=== PATIENT | female | born 1965 | race Caucasian/White ===

== ENCOUNTER 2018-01-18 09:34 | Emergency (ER) | payer MEDICARE, MEDICAID ==
[2018-01-18] MEDS ORDERED: levETIRAcetam In NaCl (Iso-Os) 1,000 MG in Premix Bag 1 BAG IVPB SCH (10:15)
[2018-01-18] MEDS ORDERED: Acetaminophen 500 MG TAB ONE (10:37)
== END 2018-01-18 11:11 | disposition home or self-care (01) ==
LOC: ERS 09:34
DX: G40.909 Epilepsy, unspecified, not intractable, without status epilepticus (principal); Z91.14 Patient's other noncompliance with medication regimen; I10 Essential (primary) hypertension; F41.9 Anxiety disorder, unspecified; F17.210 Nicotine dependence, cigarettes, uncomplicated; Z85.42 Personal history of malignant neoplasm of other parts of uterus; Z79.899 Other long term (current) drug therapy
CPT/HCPCS: 36415; 80177; 84146; 96365; J1953

== ENCOUNTER 2018-03-10 06:29 | Emergency (ER) | payer MEDICAID, MEDICARE ==
[2018-03-10] MEDS ORDERED: traMADol HCl 50 MG TAB ONE (06:42)
== END 2018-03-10 06:50 | disposition home or self-care (01) ==
LOC: ERS 06:29
DX: S80.862A Insect bite (nonvenomous), left lower leg, initial encounter (principal); Z71.6 Tobacco abuse counseling; G40.909 Epilepsy, unspecified, not intractable, without status epilepticus; I10 Essential (primary) hypertension; F17.210 Nicotine dependence, cigarettes, uncomplicated; F41.9 Anxiety disorder, unspecified; Z79.899 Other long term (current) drug therapy; W57.XXXA Bitten or stung by nonvenomous insect and other nonvenomous arthropods, initial encounter
CPT/HCPCS: 99406

== ENCOUNTER 2018-04-08 06:25 | Emergency (ER) | payer MEDICARE ==
[2018-04-08 06:57] LABS: #Basophils 0.1 thou/uL (0.0-0.2); #Eosinphils 0.3 thou/uL (0.0-0.7); #Lymphocytes 2.5 thou/uL (1.20-3.40); #Monocytes 0.7 thou/uL (0.11-0.59); #Neutrophils 5.3 thou/uL (1.40-6.50); %Basophils 0.9 % (0.0-1.0); %Eosinophils 3.2 % (0.0-10.0); %Lymphocytes 28.3 % (21.0-51.0); %Monocytes 8.3 % (0.0-10.0); %Neutrophils 59.3 % (42.0-75.0); Hemoglobin 15.5 g/dL (12.0-16.0); Mean Corpuscular HGB CONC 33.5 g/dL (32.0-36.0); Mean Corpuscular Hemoglobin 29.9 pg (27.0-31.0); Mean Corpuscular Volume 89.1 fL (78.0-98.0); Mean Platelet Volume 6.5 fL (7.4-10.4); Platelet Count 320 thou/uL (130-400); RBC Distribution Width 11.9 % (11.5-14.5); White Blood Cell (WBC) Count 8.9 thou/uL (4.8-10.8)
[2018-04-08 07:20] LABS: ALT (SGPT) 60 U/L (8-55); AST (SGOT) 40 U/L (5-34); Albumin 4.3 g/dL (3.5-5.0); Alkaline Phosphatase 114 U/L (40-150); Anion Gap 14 mmol/L (10-20); BUN (Urea Nitrogen) 12 mg/dL (9.8-20.1); Bilirubin, Total 0.3 mg/dL (0.2-1.2); Calc. Creatinine Clearance 0 mL/min (70-130); Carbon Dioxide 25 mmol/L (22-29); Chloride 105 mmol/L (98-107); Estimated GFR-MDRD 80; Globulin 3.1 g/dL (2.4-3.5); Glucose 107 mg/dL (70-105); Protein, Total 7.4 g/dL (6.0-8.3); Sodium 140 mmol/L (136-145)
[2018-04-08] MEDS ORDERED: Acetaminophen 500 MG TAB ONE (07:44)
--- NOTE | 2018-04-08 08:18 | CT ---
NONCONTRAST CT HEAD: DATE: 04/08/18. HISTORY: Trauma. The patient had a seizure on Saturday and hit right side of face. The patient has right eye p ain. The patient states passed out on concrete floor and does not remember the incident. COMPARISON: 05/24/15. FINDINGS: Again noted is evidence of prior craniotomy defect involving the left calvarium. There is also a sta ble area of encephalomalacia within the left temporal occipital region. There is no evidence of a he morrhage, acute infarction, mass effect, or midline shift. The ventricular system is normal in size, shape, and position. Mucosal thickening is seen in the ethmoidal air cells bilaterally. The mastoid air cells are clear. No calvarial fracture is seen. There are calcifications in the scalp soft tissues anteriorly at the vertex and posterior occipital region which may be related to calcified sebaceous cyst. These calcif ications were present on prior exam, although smaller in size. There is subcutaneous soft tissue swe lling seen adjacent to the right orbit as well as in the right lateral frontoparietal region. IMPRESSION: 1. No acute intracranial abnormalities demonstrated. 2. Cerebellar tonsils again appear low-lying as noted on prior exam. 3. Stable postsurgical changes of left calvarium with underlying encephalomalacia within the left te mporo-occipital region. 4. Sinus disease. 5. Subcutaneous soft tissue swelling adjacent to the right orbit as well as involving the right fron toparietal scalp soft tissues. POS: [facility]
--- NOTE | 2018-04-08 08:30 | CT ---
CT FACIAL BONES WITH SAGITTAL REFORMATIONS: HISTORY: Trauma, seizure, hit the right side of the face. Right eye pain. FINDINGS: The bony orbital kelsey are intact. No proptosis or retrobulbar hematoma is seen on either side. No facial bone fractures are identified. No temporomandibular dislocation is seen. There is mucosal di sease in the paranasal sinuses. There are postop changes in the left calvarium. There is soft tissu e swelling in the right periorbital region. IMPRESSION: No CT evidence of facial bone fracture. POS: [facility]
--- NOTE | 2018-04-08 09:05 | RAD ---
RIGHT SHOULDER 3 VIEWS: HISTORY: Right shoulder pain. FINDINGS/IMPRESSION: No acute fracture or dislocation is seen. There are mild degenerative changes in the acromioclavicul ar joint. POS: [facility]
--- NOTE | 2018-04-08 09:11 | RAD ---
PORTABLE LEFT KNEE 4 VIEWS: HISTORY: Injury. Left knee pain. FINDINGS/IMPRESSION: No acute fracture or dislocation is identified. There is irregular patchy calcification in the dista l shaft of the femur which may be either due to an enchondroma or a bone infarct. This is unchanged since the exam of 02/12/16. POS: [facility]
== END 2018-04-08 08:11 | disposition home or self-care (01) ==
LOC: ERS 06:25
DX: S00.11XA Contusion of right eyelid and periocular area, initial encounter (principal); S40.011A Contusion of right shoulder, initial encounter; G40.909 Epilepsy, unspecified, not intractable, without status epilepticus; I10 Essential (primary) hypertension; F41.9 Anxiety disorder, unspecified; F17.210 Nicotine dependence, cigarettes, uncomplicated; Z79.899 Other long term (current) drug therapy; W22.8XXA Striking against or struck by other objects, initial encounter
CPT/HCPCS: 36415; 70450; 70486; 80053; 80177; 85025; 99406

== ENCOUNTER 2018-10-14 18:29 | Observation (INO) | payer MEDICARE ==
[2018-10-14 19:14] LABS: #Basophils 0.1 thou/uL (0.0-0.2); #Eosinphils 0.2 thou/uL (0.0-0.7); #Lymphocytes 3.6 thou/uL (1.20-3.40); #Monocytes 0.7 thou/uL (0.11-0.59); #Neutrophils 5.3 thou/uL (1.40-6.50); %Eosinophils 1.6 % (0.0-10.0); %Lymphocytes 36.7 % (21.0-51.0); %Monocytes 7.2 % (0.0-10.0); %Neutrophils 53.6 % (42.0-75.0); Hemoglobin 15.7 g/dL (12.0-16.0); Mean Corpuscular HGB CONC 33.3 g/dL (32.0-36.0); Mean Corpuscular Hemoglobin 30.5 pg (27.0-31.0); Mean Corpuscular Volume 91.6 fL (78.0-98.0); Mean Platelet Volume 6.7 fL (7.4-10.4); Platelet Count 360 thou/uL (130-400); Red Blood Cell (RBC) Count 5.13 mill/uL (4.20-5.40); White Blood Cell (WBC) Count 9.8 thou/uL (4.8-10.8)
[2018-10-14 19:36] LABS: ALT (SGPT) 71 U/L (8-55); AST (SGOT) 33 U/L (5-34); Albumin 4.4 g/dL (3.5-5.0); Alkaline Phosphatase 108 U/L (40-150); Anion Gap 13 mmol/L (10-20); BUN (Urea Nitrogen) 9 mg/dL (9.8-20.1); Bilirubin, Total 0.3 mg/dL (0.2-1.2); CK (CPK) 166 U/L (29-168); Calc. Creatinine Clearance 0 mL/min (70-130); Calcium 9.8 mg/dL (7.8-10.44); Carbon Dioxide 27 mmol/L (22-29); Chloride 104 mmol/L (98-107); Estimated GFR-MDRD 74; Globulin 3.4 g/dL (2.4-3.5); Glucose 92 mg/dL (70-105); Lipase 19 U/L (8-78); Potassium 3.9 mmol/L (3.5-5.1); Protein, Total 7.8 g/dL (6.0-8.3); Sodium 140 mmol/L (136-145)
--- NOTE | 2018-10-14 20:22 | RAD ---
PORTABLE CHEST: 10/14/18 PROVIDED CLINICAL HISTORY: Chest pain. FINDINGS: Comparison 11/19/16. The cardiac and mediastinal silhouette is within normal limits. Lungs appear clear. No pleural fluid or pneumothorax apparent. IMPRESSION: No evidence for acute cardiopulmonary process. POS: [facility]
[2018-10-14] MEDS ORDERED: Acetaminophen 500 MG TAB ONE (21:48)
--- NOTE | 2018-10-14 22:19 | CT ---
CT OF BRAIN 10/14/18 PROVIDED CLINICAL HISTORY: Left arm weakness. FINDINGS: Comparison is made with the study dated 04/08/18. The ventricular system is unchanged in size and morphology. There is no evidence for intracranial hem orrhage or mass effect. Left temporal region encephalomalacia with overlying postoperative change inv olving the skull redemonstrated, stable. The extracranial soft tissues and osseous structures demonst rate no acute abnormality. IMPRESSION: No evidence for intracranial hemorrhage or mass effect. POS: [facility]
[2018-10-14 23:41] LABS: Troponin I Less than 0.010 ng/mL (< 0.028)
[2018-10-15 02:34] LABS: Troponin I Less than 0.010 ng/mL (< 0.028)
[2018-10-15] MEDS ORDERED: Eucerin (Mineral Oil/Petrolatum,White) 30 gm Jar TOP PRN (07:59)
[2018-10-15] MEDS ORDERED: Zolpidem Tartrate 5 MG TAB PO PRN (07:59)
[2018-10-15] MEDS ORDERED: Diabetic Tussin 200 MG/10 ML UDCUP PO PRN (07:59)
[2018-10-15] MEDS ORDERED: Sodium Chloride 0.65% Nasal 44 ML BOT EA NARE PRN (07:59)
[2018-10-15] MEDS ORDERED: Senokot S 8.6-50 MG TAB PO PRN (07:59)
[2018-10-15] MEDS ORDERED: Calcium Carbonate 500 MG ChewTAB PO PRN (07:59)
[2018-10-15] MEDS ORDERED: Acetaminophen 325 MG TAB PO PRN (07:59)
[2018-10-15] MEDS ORDERED: hydrALAZINE 20 MG/ML VIAL SLOW IVP PRN (07:59)
[2018-10-15] MEDS ORDERED: Bisacodyl 10 MG SUPP PR PRN (07:59)
[2018-10-15] MEDS ORDERED: Ondansetron PF 4 MG/2 ML Vial IVP PRN (07:59)
[2018-10-15] MEDS ORDERED: Ondansetron ODT 4 MG TAB PO PRN (07:59)
[2018-10-15] MEDS ORDERED: Loperamide HCl 2 MG CAP PO PRN (07:59)
[2018-10-15] MEDS ORDERED: Loratadine 10 MG TAB PO PRN (07:59)
[2018-10-15] MEDS ORDERED: Bisacodyl 5 MG TAB PO PRN (07:59)
[2018-10-15] MEDS ORDERED: Cepastat Lozenges 1 LOZ PO PRN (07:59)
[2018-10-15] MEDS ORDERED: Artificial Tears 18 DROP/0.9 ML EA EYE PRN (07:59)
[2018-10-15] MEDS ORDERED: levETIRAcetam 500 MG TAB PO SCH (09:45)
--- NOTE | 2018-10-15 10:11 | ULT ---
CAROTID ULTRASOUND: Comparison: None. History: TIA. Technique: Multiplanar grayscale and color doppler images were obtained in a carotid ultrasound. Spec tral analysis of the doppler waveforms were performed. FINDINGS: The bilateral internal and common carotid arteries show no significant calcified plaque. The doppler waveforms are normal bilaterally. Peak systolic velocity in the right ICA is 89 cm/sec. Peak systolic velocity in the right CCA is 104 cm/sec. The right ICA/CCA ratio is 0.9. Peak systolic velocity in the left ICA is 93 cm/sec. Peak systolic velocity in the left CCA is 91 cm/ sec. The left ICA/CCA ratio is 1.0. Both vertebral arteries demonstrate antegrade flow without focal stenosis. IMPRESSION: No evidence of hemodynamically significant stenosis. POS: [facility]
--- NOTE | 2018-10-15 11:53 | HP ---
PRIMARY CARE PHYSICIAN: [facility]. REASON FOR ADMISSION: Left upper and lower extremity weakness. HISTORY OF PRESENT ILLNESS: A 53-year-old female, who has underlying history of hypertension, seizure disorder, as well as tobacco abuse disorder, who came to emergency room with complaint of left upper and lower extremity weakness. The patient reports that symptoms started over a week and she was having difficulty lifting left upper and lower extremity. She did not have any speech problems. She was reporting that she noticed lump in her left arm, which was bothering her. Per the patient that lump is present for several months and per the patient, it has not significantly increased in size. She was also having on and off headache yesterday. She was also feeling tingling and numbness in the left upper and lower extremity and that is why she decided to come to emergency room for evaluation. The patient denies any seizure. She denies any chest pain, palpitation, dizziness, syncope, fall, or trauma. She denies any UTI symptoms. She denies any constipation, diarrhea, melena, or hematochezia. In the emergency room, she had a CT of brain, which was normal. Her routine blood test including CBC, BMP, and cardiac enzyme are negative. The patient is being admitted to Stroke Floor for further evaluation. REVIEW OF SYSTEMS: CONSTITUTIONAL: Negative for weight loss or gain, ability to conduct usual activities. SKIN: Negative for rash, itching. EYES: Negative for double vision, pain. ENT/MOUTH: Negative for nose bleeding, neck stiffness, pain, tenderness. CARDIOVASCULAR: Negative for palpitations, dyspnea on exertion, orthopnea. RESPIRATORY: Negative for shortness of breath, wheezing, cough, hemoptysis, fever or night sweats. GASTROINTESTINAL: Negative for poor appetite, abdominal pain, heartburn, nausea , vomiting, constipation, or diarrhea. GENITOURINARY: Negative for urgency, frequency, dysuria, nocturia. MUSCULOSKELETAL: Negative for pain, swelling. NEUROLOGIC/PSYCHIATRIC: Negative for anxiety, depression. ALLERGY/IMMUNOLOGIC: Negative for skin rash, bleeding tendency. Please see my HPI for pertinent positive and negative. All other review of systems reviewed and negative except as mentioned in the HPI. PAST MEDICAL HISTORY: Hypertension, history of uterine malignancy, and history of epilepsy. PAST SURGICAL HISTORY: Brain tumor surgery, which turned out to be benign, appendicectomy, cholecystectomy, , and hysterectomy. PAST PSYCHIATRIC HISTORY: Anxiety and depression. SOCIAL HISTORY: The patient is . She drinks alcohol every week. She smokes about 1.5 pack per day. She denies any other illicit drug abuse. FAMILY HISTORY: No family history of coronary artery disease, stroke, or cancer. ALLERGIES: PREDNISONE AND VIOXX. CURRENT HOME MEDICATIONS: 1. Keppra 1000 mg twice daily. 2. Amlodipine 5 mg daily. The patient is taking some other medication, but she is not able to tell me the name of medication at this point, but based on our 2017 record, the patient is on; 1. Buspirone 15 mg b.i.d. 2. Clonazepam 0.5 mg at bedtime. 3. Clonidine 0.1 mg at bedtime. 5. Tramadol p.r.n. 6. Amlodipine 5 mg daily. EMERGENCY ROOM COURSE: Reviewed. The patient was given aspirin, nicotine patch , Keppra, and Tylenol. PHYSICAL EXAMINATION: VITAL SIGNS: Currently blood pressure 163/98, pulse 89, respiratory rate 18, temperature 97.8, and saturation 97% on room air. Weight 65.7 kg. GENERAL: The patient is currently alert, awake, in no obvious acute distress. HEENT: Head; normocephalic, atraumatic. Eyes; pupils are round, reactive to light. Extraocular muscle intact. ENT, oropharynx within normal limits. Moist mucous membranes. No oral lesion. No pharyngeal erythema. No exudate. NECK: Supple. No JVD. No thyromegaly. No carotid bruit. No jugular venous distention. LUNGS: Clear to auscultation without any rhonchi or rales. CARDIAC: S1 and S2 regular. No murmur. No gallop. No rub. ABDOMEN: Soft. Bowel sounds present. Nontender. Nondistended. No organomegaly. No mass. No suprapubic tenderness. BACK: Unremarkable. No CVA tenderness. EXTREMITIES: Upper extremities; passive movement of all joints are normal. Lower extremities, passive movement of all joints are normal. SKIN: No skin rash. PSYCHIATRIC: Normal affect. HEMATOLOGIC: No lymphadenopathy. NEUROLOGIC: The patient is alert and oriented x3. Cranial nerves nerve 2 through 12 intact. Face is symmetrical without any facial asymmetry. Speech normal. Motor, the patient does have difficulty lifting left upper and lower extremity. Reflex is symmetrical. Sensation is intact. Unable to elicit cerebellar signs with the left side because the patient is not able to lift the left upper and lower extremity. When I was examining her neuro, at that time, there was suspicion for her convergent type of behavior. SIGNIFICANT LABORATORY DATA: CT brain based on my review no acute intracranial process. CBC; WBC 9.8, hemoglobin 15.7, and platelets 360. BMP; sodium 140, potassium 3.9, chloride 104, carbon dioxide 27, anion gap 13, BUN 9, creatinine 0.81, glucose 92, and calcium 9.8. LFT; AST 33, ALT 71, alkaline phosphatase 108, albumin 4.4, lipase 19. Cardiac enzymes negative x3. EKG showing normal sinus rhythm, left atrial enlargement. Carotid Doppler turned out to be normal. Chest x-ray based on my review, no acute cardiopulmonary process. ASSESSMENT AND PLAN: Impression: 1. Left upper and lower extremity weakness. At this point, the patient has underlying history of hypertension and tobacco abuse disorder. She has some risk factor for having transient ischemic attack versus atherosclerotic disease. At this point, my suspicious is also points towards conversion disorder, but underlying stroke needs to be excluded. We will obtain an MRI of brain. We will consult Neurology for expert opinion. Meanwhile, we will continue with aspirin 81 mg daily, amlodipine 5 mg p.o. daily, Lipitor 40 mg p.o. at bedtime. Neuro check q.4 hourly. PT and OT consultation. Echocardiography and carotid Doppler. We will check urine drug screen. We will check lipid profile. 2. Epilepsy, currently stable. We will continue Keppra 1000 mg p.o. b.i.d. 3. Hypertension. We will continue amlodipine 5 mg p.o. daily. 4. Tobacco abuse disorder. Smoking cessation counseling given, healthy lifestyle measure discussed with the patient. We will continue with nicotine patch. 5. Anxiety and depression. Once we confirm the patient's home medication, we will resume selected antidepressant and anxiety medication while in hospital. 6. Deep venous thrombosis prophylaxis, Lovenox 40 mg subcu daily. GI prophylaxis, Pepcid 20 mg p.o. b.i.d. CODE STATUS: The patient is full code. The patient's is surrogate decision maker. Disposition plan within 24 hours. Plan of care discussed with the patient and her at bedside in the emergency room. Job ID: [id number] MTDD
[2018-10-15] MEDS ORDERED: Acetaminophen 500 MG TAB ONE ×2 (13:17→13:38)
[2018-10-15] MEDS ORDERED: Nicotine 14 MG PATCH ONE (13:39)
[2018-10-15] MEDS: Nicotine 14 MG PATCH TOP SCH (13:57)
[2018-10-15] MEDS ORDERED: Famotidine 20 MG TAB ONE (14:00)
[2018-10-15] MEDS ORDERED: Enoxaparin Sodium 40 MG/0.4 ML SYRINGE ONE (14:00)
[2018-10-15] MEDS: Famotidine 20 MG TAB PO SCH ×2 (14:06→20:32)
[2018-10-15] MEDS: Enoxaparin Sodium 40 MG/0.4 ML SYRINGE SC SCH (14:06)
--- NOTE | 2018-10-15 14:16 | MRI ---
BRAIN MRI WITHOUT CONTRAST: Date: 10/15/18 COMPARISON: None. HISTORY: Transient ischemic attack, left arm weakness. TECHNIQUE: Multiplanar, multisequence MR imaging of the brain obtained without contrast. FINDINGS: Status post craniotomy on the left. There is a focal area of encephalomalacia in the left temporal lo be laterally, stable when compared to prior imaging. The regional bone marrow signal intensity appears grossly unremarkable. Benign-appearing subcutaneous fat nodules are seen within the scalp. There is degenerative change at the atlantoaxial interspace. There is mild mucosal thickening involving the maxillary sinuses and the ethmoid air cells. Arterial flow-voids at axial level of skull base appear patent. Axial gradient echo imaging demonstrates no ev idence for intracranial hemorrhage. The diffusion-weighted imaging demonstrates no evidence for acute infarction. There are a few scattered foci of increased FLAIR signal within the subcortical white matter suggesti ng mild small vessel disease. Similar patchy increased T2 signal seen within the martin. IMPRESSION: Chronic findings as described above. No evidence for acute infarction. POS: [facility]
[2018-10-15 17:41] VITALS: BMI 23.1
[2018-10-15] MEDS: HYDROcodone/Acetaminophen 5/325 mg Tablet PO PRN (19:26)
[2018-10-15 20:30] LABS: Bilirubin Negative (Negative); Blood, Urine Small (Negative); Clarity CLEAR (Clear); Glucose, Urine (Dipstick) Negative (Negative); Leukocyte Moderate (Negative); Nitrite Negative (Negative); Protein, Urine (Dipstick) Negative (Neg-Trace); Specific Gravity, Urine 1.004 (1.002-1.036); Urobilinogen 0.2 mg/dL (0.2-1.0)
[2018-10-15 20:31] LABS: Bacteria/HPF None Seen HPF (None Seen); Hyaline Casts/LPF 0-3 HYALINE CAST LPF (0-3 Hyaline); Pathc Cast-AUWi Flag 0.14 (0-2.49); Squamous Epithelial 0-3 HPF (0-3)
[2018-10-15] MEDS: levETIRAcetam 500 MG TAB PO SCH (20:32)
[2018-10-15 20:38] LABS: Amphetamine Not Detected (NotDetected); Barbiturates Screen Not Detected (NotDetected); Benzodiazepine Screen Not Detected (NotDetected); Cocaine Metabolite Screen Not Detected (NotDetected); Medtox Control Line Valid? VALID (VALID); Medtox Reader # READER 1; Methadone Not Detected (NotDetected); Methamphetamine Not Detected (NotDetected); Opiate Screen Not Detected (NotDetected); Oxycodone Screen Not Detected (NotDetected); Phencyclidine (PCP) Not Detected (NotDetected); THC/Cannabinoid Screen Not Detected (NotDetected); Tricyclic Screen Not Detected (NotDetected)
[2018-10-15] MEDS ORDERED: Atorvastatin Calcium 40 MG TAB PO SCH (21:00)
[2018-10-16] MEDS: HYDROcodone/Acetaminophen 5/325 mg Tablet PO PRN ×2 (05:24→13:34)
[2018-10-16 05:42] LABS: #Basophils 0.1 thou/uL (0.0-0.2); #Eosinphils 0.2 thou/uL (0.0-0.7); #Lymphocytes 2.2 thou/uL (1.20-3.40); #Monocytes 0.8 thou/uL (0.11-0.59); #Neutrophils 7.6 thou/uL (1.40-6.50); %Basophils 0.5 % (0.0-1.0); %Eosinophils 2.2 % (0.0-10.0); %Lymphocytes 20.4 % (21.0-51.0); %Neutrophils 69.9 % (42.0-75.0); Hemoglobin 15.3 g/dL (12.0-16.0); Mean Corpuscular HGB CONC 32.5 g/dL (32.0-36.0); Mean Corpuscular Volume 92.3 fL (78.0-98.0); Mean Platelet Volume 6.8 fL (7.4-10.4); Platelet Count 335 thou/uL (130-400); RBC Distribution Width 12.1 % (11.5-14.5); Red Blood Cell (RBC) Count 5.11 mill/uL (4.20-5.40); White Blood Cell (WBC) Count 10.9 thou/uL (4.8-10.8)
[2018-10-16 06:33] LABS: Anion Gap 15 mmol/L (10-20); BUN (Urea Nitrogen) 8 mg/dL (9.8-20.1); Calc. Creatinine Clearance 81 mL/min (70-130); Carbon Dioxide 20 mmol/L (22-29); Cardiac Risk 3.2 (Less than 4.5); Chloride 106 mmol/L (98-107); Cholesterol 164 mg/dl (< 200 Desired); Estimated GFR-MDRD 76; Glucose 90 mg/dL (70-105); HDL Cholesterol 51 mg/dL (>60 Neg Risk); LDL Cholesterol, Calculated 96 mg/dL; Potassium 4.2 mmol/L (3.5-5.1); Sodium 137 mmol/L (136-145); Triglycerides 84 mg/dL (Less than 150)
[2018-10-16] MEDS ORDERED: Amlodipine 5 MG TAB PO SCH ×2 (09:00)
[2018-10-16] MEDS ORDERED: Amlodipine 10 MG TAB PO SCH (09:00)
[2018-10-16] MEDS ORDERED: Nitrofurantoin Monohyd/M-Cryst 100 MG CAP PO SCH (09:00)
[2018-10-16] MEDS: Enoxaparin Sodium 40 MG/0.4 ML SYRINGE SC SCH (09:15)
[2018-10-16] MEDS: levETIRAcetam 500 MG TAB PO SCH (09:15)
[2018-10-16] MEDS: Famotidine 20 MG TAB PO SCH (09:15)
--- NOTE | 2018-10-16 09:39 | PDOC.PN ---
- Subjective Encounter Start Date: 10/16/18 Encounter Start Time: 07:40 -: old records requested/rev Patient seen and examined. No new complaints. No overnight events still feels left side weakness - Objective Resuscitation Status - Order Detail: 10/15/18 07:55 Resuscitation Status Routine Resuscitation Status: FULL: Full Resuscitation MAR Reviewed: Yes Vital Signs & Weight: Vital Signs (12 hours) Temp Pulse Resp BP Pulse Ox 10/16/18 09:15 77 10/16/18 07:52 97.7 F 77 16 137/87 96 10/16/18 04:00 97.7 F 77 18 172/88 H 97 10/16/18 00:00 98.2 F 85 18 147/85 H 96 Weight Weight 135 lb I&O: 10/15/18 10/16/18 10/17/18 06:59 06:59 06:59 Intake Total 490 Balance 490 Result Diagrams: 10/16/18 04:45 10/16/18 04:45 Radiology Reviewed by me: Yes (MRI, echo and carotid reviewed) EKG Reviewed by me: Yes (nsr) Phys Exam - Physical Examination Constitutional: NAD HEENT: PERRLA, moist MMs, sclera anicteric Neck: no JVD, supple Respiratory: no wheezing, no rales, no rhonchi Cardiovascular: RRR, no significant murmur, no rub Gastrointestinal: soft, non-tender, no distention, positive bowel sounds Musculoskeletal: no edema, pulses present left side subjective weakness Lymphatic: no nodes Psychiatric: normal affect, A&O x 3 Skin: no rash, normal turgor Dx/Plan (1) Left-sided weakness Code(s): R53.1 - WEAKNESS Status: Acute (2) UTI (urinary tract infection) Status: Acute (3) HTN (hypertension) Code(s): I10 - ESSENTIAL (PRIMARY) HYPERTENSION Status: Chronic Qualifiers: (4) Seizure disorder Code(s): G40.909 - EPILEPSY, UNSP, NOT INTRACTABLE, WITHOUT STATUS EPILEPTICUS Status: Chronic (5) Tobacco abuse Code(s): Z72.0 - TOBACCO USE Status: Chronic - Plan cont current plan of care * send urine culture * start macrobid * medication reviewed as below * symptomatic treatment * neurology to see and give opinion regarding left side weakness * if neuro ok, will discharge. Review of Systems - Review of Systems Constitutional: negative: fever, chills, sweats, weakness, malaise, other ENT: negative: Ear Pain, Ear Discharge, Nose Pain, Nose Discharge, Nose Congestion, Mouth Pain, Mouth Swelling, Throat Pain, Throat Swelling, Other Respiratory: negative: Cough, Dry, Shortness of Breath, Hemoptysis, SOB with Excertion, Pleuritic Pain, Sputum, Wheezing Cardiovascular: negative: chest pain, palpitations, orthopnea, paroxysmal nocturnal dyspnea, edema, light headedness, other Gastrointestinal: negative: Nausea, Vomiting, Abdominal Pain, Diarrhea, Constipation, Melena, Hematochezia, Other Genitourinary: negative: Dysuria, Frequency, Incontinence, Hematuria, Retention , Other Musculoskeletal: negative: Neck Pain, Shoulder Pain, Arm Pain, Back Pain, Hand Pain, Leg Pain, Foot Pain, Other Skin: negative: Rash, Lesions, Clarence, Bruising, Other Neurological: Weakness. negative: Numbness, Incoordination, Change in Speech, Confusion, Seizures, Other - Medications/Allergies Allergies/Adverse Reactions: Allergies Allergy/AdvReac Type Severity Reaction Status Date / Time prednisone Allergy Intermediate Rash Verified 05/13/17 12:56 rofecoxib [From Vioxx] Allergy Intermediate leg Verified 05/13/17 12:56 swelling Medications: Current Medications Acetaminophen (Tylenol) 650 mg PO Q4H PRN PRN Reason: Headache/Fever/Mild Pain (1-3) Hydrocodone Bitart/Acetaminophen ([place] 5/325) 1 tab PO Q4H PRN PRN Reason: Moderate Pain (4-6) Last Admin: 10/16/18 05:24 Dose: 1 tab Amlodipine Besylate (Norvasc) 10 mg PO DAILY [facility] Last Admin: 10/16/18 09:15 Dose: 10 mg Artificial Tears (Tears Naturale) 2 drop EA EYE PRN PRN PRN Reason: Dry Eyes Aspirin (Aspirin Chewable) 81 mg PO DAILY [facility] Last Admin: 10/16/18 09:15 Dose: 81 mg Atorvastatin Calcium (Lipitor) 40 mg PO HS [facility] Last Admin: 10/15/18 20:32 Dose: 40 mg Bisacodyl (Dulcolax) 10 mg PO DAILYPRN PRN PRN Reason: Constipation Bisacodyl (Dulcolax) 10 mg [place] DAILYPRN PRN PRN Reason: Constipation Calcium Carbonate (Tums) 1,000 mg PO Q4H PRN PRN Reason: Heartburn or Indigestion Enoxaparin Sodium (Lovenox) 40 mg SC 0900 [facility] Last Admin: 10/16/18 09:15 Dose: 40 mg Famotidine (Pepcid) 20 mg PO BID [facility] Last Admin: 10/16/18 09:15 Dose: 20 mg Guaifenesin (Robitussin Sf) 200 mg PO Q4H PRN PRN Reason: Cough Hydralazine HCl (Apresoline) 10 mg SLOW IVP Q4H PRN PRN Reason: SBP > 180 and HR < 70 Levetiracetam (Keppra) 1,000 mg PO BID [facility] Last Admin: 10/16/18 09:15 Dose: 1,000 mg Loperamide HCl (Imodium) 2 mg PO PRN PRN PRN Reason: Diarrhea/Loose Stools Loratadine (Claritin) 10 mg PO DAILYPRN PRN PRN Reason: Sinus Symptoms Mineral Oil/White Petrolatum (Eucerin Cream) 0 gm TOP BIDPRN PRN PRN Reason: Dry Skin Nicotine (Nicoderm Patch) 14 mg TOP Q24HR [facility] Last Admin: 10/15/18 13:57 Dose: 14 mg Nitrofurantoin Macrocrystals (Macrobid) 100 mg PO BID [facility] Last Admin: 10/16/18 09:15 Dose: 100 mg Ondansetron HCl (Zofran Odt) 4 mg PO Q6H PRN PRN Reason: Nausea/Vomiting Ondansetron HCl (Zofran) 4 mg IVP Q6H PRN PRN Reason: Nausea/Vomiting Senna/Docusate Sodium (Senokot S) 2 tab PO BID PRN PRN Reason: Constipation Sodium Chloride ([place] Nasal [place] 0.65%) 0 ml EA NARE QIDPRN PRN PRN Reason: Nasal Congestion Sodium Chloride (Flush - Normal Saline) 10 ml IVF PRN PRN PRN Reason: Saline Flush Throat Lozenges (Cepastat Lozenges) 1 mick PO Q2H PRN PRN Reason: Sore Throat Zolpidem Tartrate (Ambien) 5 mg PO HSPRN PRN PRN Reason: Insomnia
--- NOTE | 2018-10-16 10:56 | DIS ---
DATE OF ADMISSION: 10/14/2018 DATE OF DISCHARGE: 10/16/2018 PRIMARY CARE PHYSICIAN: Ana Rosa Esqueda. DISCHARGE DISPOSITION: Home. PRIMARY DISCHARGE DIAGNOSES: 1. Left upper and lower extremity weakness, unexplained. 2. Urinary tract infection. SECONDARY DISCHARGE DIAGNOSES: 1. Tobacco abuse disorder. 2. Seizure disorder. 3. Hypertension. PRIMARY PROCEDURE/OPERATION: None. RADIOLOGICAL INVESTIGATION: CT of brain on admission showed no evidence of intracranial hemorrhage or mass effects. Chest x-ray showed no acute cardiopulmonary process. MRI of brain showed craniotomy changes on the left side. Focal area of encephalomalacia in the left temporal lobe without any acute infarction. Carotid Doppler negative for any stenosis. Echocardiography showed diastolic dysfunction. SIGNIFICANT LABORATORY DATA: WBC 10.9, hemoglobin 15.3, and platelets 335. Sodium 137, potassium 4.2, BUN 8, creatinine 0.79, and calcium 9.0. LFT normal. Cardiac enzyme negative. LDL 96. Lipase 19. Urinalysis suggestive of UTI. Urine drug screen negative. DISCHARGE MEDICATIONS: The patient will continue all her previous medications includin. Amlodipine 10 mg daily. 2. Keppra 1000 mg p.o. b.i.d. 3. Aspirin 81 mg daily. 4. Lipitor 40 mg p.o. at bedtime. 5. Macrobid 100 mg p.o. b.i.d. CONTRAINDICATION: None. CODE STATUS: Full code. INPATIENT STEEL FABRICATOR: Dr. Garrick Joy, neurologist, was consulted while in the hospital. TESTS RESULTS PENDING ON DISCHARGE: None. ALLERGIES: PREDNISONE AND ROFECOXIB. DISCHARGE PLAN: Posthospital, the patient will follow up with primary care physician and Neurology. HOSPITAL COURSE: This is a 53-year-old female, who came to the hospital with complaint of left upper and lower extremity weakness which was going on for last 2 [address] of brain in the emergency room was negative for any acute process. Chest x-ray was normal. Routine blood test was also unremarkable. Her left-sided upper and lower extremity weakness was unexplained. We did MRI of brain that did not show any acute process. A carotid Doppler is also normal and echocardiography is also unremarkable with mild diastolic dysfunction. At this point, the patient continued to complain of subjectively left upper and lower extremity weakness, which we cannot explain. Neurology on the case, we will wait for their opinion. Her urinalysis is suggestive of a symptomatic UTI and that is why we started Macrobid for 5 more days upon discharge. This patient will be evaluated by Neurology later on today, and if they are okay, then we will consider discharging her home. The patient will resume all her previous medication. Healthy lifestyle measures discussed with the patient including smoking cessation counseling given. Job ID: [id number]
[2018-10-16] MEDS: Nicotine 14 MG PATCH TOP SCH (13:35)
[2018-10-16 20:49] VITALS: BP 135/78; TEMP 98
--- NOTE | 2018-10-16 23:19 | CON ---
DATE OF CONSULTATION: 10/16/2018 CONSULTING PHYSICIAN: Hospitalist Service. IMPRESSION: 1. Psychogenic left-sided weakness. 2. History of seizures. 3. Hypertension. PLAN: 1. Increase Keppra to 1500 mg twice a day. 2. Office followup. HISTORY OF PRESENT ILLNESS: Ms. Javier is a 53-year-old woman with a past history of hypertension and seizures. She reports the last seizure was about 2 weeks ago. She was reportedly doing well other than being under quite a bit of stress until Saturday of this week. She reports developing a combination of pain, tingling, and weakness involving the left arm and some degree of the left leg. She came to the emergency room for evaluation. The initial CT scan of the brain was negative. A followup MRI of the brain was also negative for any acute changes. Her carotid ultrasound did not show any evidence of stenosis. Her echocardiogram showed a normal ejection fraction of 60% to 65%. Lab studies are unremarkable other than a possible urinary tract infection. PAST MEDICAL HISTORY: Hypertension and seizure disorder. MEDICATIONS: 1. Lisinopril. 2. Keppra. ALLERGIES: 1. PREDNISONE. 2. ROFECOXIB. SOCIAL HISTORY: Positive for tobacco. Minimal alcohol. FAMILY HISTORY: Unremarkable. REVIEW OF SYSTEMS: GENERAL: Positive for intermittent headaches. No complaint of nausea, vomiting, or dizziness. NECK: No complaint of neck pain or difficulty swallowing. CARDIOVASCULAR: She does complain of substernal chest pain. PULMONARY: No complaints of shortness of breath. EXTREMITIES: Positive for left arm, primarily shoulder pain, and paresthesias in the left arm. ABDOMEN: No complaint of nausea, vomiting, cramps, or diarrhea. PHYSICAL EXAMINATION: GENERAL: She is a well-nourished, middle-aged woman, in no acute distress. VITAL SIGNS: Initial heart rate was 115, respirations 20. She is afebrile. HEENT: Pupils are equal and reactive. Conjunctivae clear. Oropharynx clear. NECK: Supple. No lymphadenopathy. EXTREMITIES: No cyanosis, clubbing, or edema. ABDOMEN: Soft and nontender. NEUROLOGIC: She was alert and cooperative. Her speech was fluent and clear. Attention and concentration were appropriate. Cranial nerve exam did not show any facial asymmetry or abnormal pupil reaction or eye movement. Tongue protruded to the center. Motor exam, she had her arm lying on a pillow, and reported that she was unable to move it, but when I elevated the arm and started to manipulate it, she actually produced normal strength, same was true for the leg. Sensation was subjectively decreased in the left hand. Reflexes were 2+ and symmetric. No abnormal movements were seen. Plantar responses were downgoing. Gait was not tested. DIAGNOSTIC DATA: EKG shows sinus tachycardia. SUMMARY: Clinical picture is not consistent with organic etiology. I strongly suspect this is all psychogenic. We are happy to follow up with her in the office for epilepsy management. Job ID: [id number]
--- NOTE | 2018-10-17 16:56 | EKG ---
Test Reason : CHEST PAIN Blood Pressure : / mmHG Vent. Rate : 104 BPM Atrial Rate : 104 BPM P-R Int : 140 ms QRS Dur : 078 ms QT Int : 368 ms P-R-T Axes : 073 032 026 degrees QTc Int : 483 ms Poor data quality, interpretation may be adversely affected Sinus tachycardia Possible Left atrial enlargement Poor anterior R wave progression Borderline ECG When compared with ECG of 14-OCT-2018 18:53, (Unconfirmed) No significant change was found Confirmed by DR. Lizeth BOLIVAR ([id number]) on 10/17/2018 4:56:21 PM Referred By: SYD Confirmed By:DR. Lizeth BOLIVAR
--- NOTE | 2018-10-18 23:30 | EKG ---
Test Reason : CP Blood Pressure : / mmHG Vent. Rate : 091 BPM Atrial Rate : 091 BPM P-R Int : 156 ms QRS Dur : 086 ms QT Int : 400 ms P-R-T Axes : 068 034 024 degrees QTc Int : 492 ms Normal sinus rhythm Possible Left atrial enlargement Possible Anterior infarct , age undetermined Abnormal ECG Confirmed by JOSE PRIDE DO ([id number]), graphics editor SIOBHAN SINGLETARY ([id number]) on 10/18/2018 11:29:29 PM Referred By: Confirmed By:JOSE PRIDE DO
== END 2018-10-16 20:06 | disposition home or self-care (01) ==
LOC: ERS 18:29 → ERHOLD 23:57 → 2SE 10-15 17:18
PROVIDERS: ADMIT Internal Medicine; ATTEND Internal Medicine
DX: R53.1 Weakness (principal); N39.0 Urinary tract infection, site not specified; F17.210 Nicotine dependence, cigarettes, uncomplicated; G40.909 Epilepsy, unspecified, not intractable, without status epilepticus; I10 Essential (primary) hypertension; F41.9 Anxiety disorder, unspecified; F32.9 Major depressive disorder, single episode, unspecified; Z79.899 Other long term (current) drug therapy; Z88.8 Allergy status to other drugs, medicaments and biological substances
CPT/HCPCS: 70450; 70551; 71045; 80048; 80053; 80061; 80306; 81001; 82550; 83690; 84484 ×4; 85025 ×2; 87086; 90732; 93005 ×2; 93306; 93880; 96372 ×2; 97116; 97139 ×3; 97535; 99285; G0009; G0378 ×2; 36415; 90471; 93010; J0360; J1650

== ENCOUNTER 2019-08-31 21:14 | Emergency (ER) | payer MEDICARE ==
[2019-08-31] MEDS ORDERED: Lorazepam 2 MG/ML VIAL ONE (21:37)
[2019-08-31] MEDS ORDERED: Morphine 4 MG/ML VIAL ONE (21:37)
[2019-08-31 21:42] LABS: #Basophils 0.1 thou/uL (0.0-0.2); #Eosinphils 0.1 thou/uL (0.0-0.7); #Lymphocytes 2.3 thou/uL (1.20-3.40); #Monocytes 1.9 thou/uL (0.11-0.59); #Neutrophils 13.5 thou/uL (1.40-6.50); %Basophils 0.6 % (0.0-1.0); %Eosinophils 0.6 % (0.0-10.0); %Lymphocytes 12.8 % (21.0-51.0); %Monocytes 10.4 % (0.0-10.0); %Neutrophils 75.6 % (42.0-75.0); Hemoglobin 15.3 g/dL (12.0-16.0); Mean Corpuscular HGB CONC 33.5 g/dL (32.0-36.0); Mean Corpuscular Hemoglobin 30.7 pg (27.0-31.0); Mean Corpuscular Volume 91.5 fL (78.0-98.0); Platelet Count 278 thou/uL (130-400); Red Blood Cell (RBC) Count 4.98 mill/uL (4.20-5.40); White Blood Cell (WBC) Count 17.9 thou/uL (4.8-10.8)
[2019-08-31 22:05] LABS: ALT (SGPT) 130 U/L (8-55); AST (SGOT) 98 U/L (5-34); Albumin 4.5 g/dL (3.5-5.0); Alkaline Phosphatase 144 U/L (40-110); Anion Gap 14 mmol/L (10-20); BUN (Urea Nitrogen) 10 mg/dL (9.8-20.1); Bilirubin, Total 0.5 mg/dL (0.2-1.2); Calc. Creatinine Clearance 0 mL/min (70-130); Calcium 9.3 mg/dL (7.8-10.44); Carbon Dioxide 23 mmol/L (22-29); Chloride 102 mmol/L (98-107); Estimated GFR-MDRD 80; Globulin 3.4 g/dL (2.4-3.5); Glucose 114 mg/dL (70-105); Potassium 3.6 mmol/L (3.5-5.1); Protein, Total 7.9 g/dL (6.0-8.3); Sodium 135 mmol/L (136-145)
--- NOTE | 2019-08-31 22:19 | CT ---
CT BRAIN WITHOUT CONTRAST: HISTORY: Fall. Multiple seizures. COMPARISON: 10/14/2018 FINDINGS: Changes of left-sided craniotomy and encephalomalacia in the left temporal lobe laterally are stable. Ventricular size is appropriate and basilar cisterns are patent. No evidence of acute infarct, hemorrhage, midline shift or abnormal extraaxial fluid collections is s een. No acute osseous abnormality is seen. There is mucosal disease in the paranasal sinuses. IMPRESSION: No CT evidence of acute intracranial process. POS: OFF
[2019-08-31 22:47] LABS: Amphetamine Not Detected (NotDetected); Barbiturates Screen Not Detected (NotDetected); Benzodiazepine Screen Not Detected (NotDetected); Cocaine Metabolite Screen Not Detected (NotDetected); Medtox Control Line Valid? VALID (VALID); Medtox Reader # READER 1; Methadone Not Detected (NotDetected); Methamphetamine Not Detected (NotDetected); Opiate Screen Detected (NotDetected); Oxycodone Screen Not Detected (NotDetected); Phencyclidine (PCP) Not Detected (NotDetected); THC/Cannabinoid Screen Not Detected (NotDetected); Tricyclic Screen Not Detected (NotDetected)
[2019-09-01] MEDS ORDERED: Morphine 4 MG/ML VIAL ONE (01:09)
[2019-09-01] MEDS ORDERED: levETIRAcetam 500 MG TAB PO SCH (01:15)
--- NOTE | 2019-09-01 07:40 | RAD ---
LUMBAR SPINE 3 VIEWS: Date: 09/01/19 INDICATION: Fall after seizure. COMPARISON: None. FINDINGS: There is mild multilevel disc degenerative disease. There is mild facet osteoarthrosis. Cholecystecto my clips are seen within the right upper quadrant. Spinal alignment appears relatively well preserved . IMPRESSION: Mild spondylosis of the lumbar spine. No acute fracture or subluxation. POS: [facility]
== END 2019-09-01 01:53 | disposition home or self-care (01) ==
LOC: ERS 21:14
DX: R56.9 Unspecified convulsions (principal); T23.232A Burn of second degree of multiple left fingers (nail), not including thumb, initial encounter; T23.231A Burn of second degree of multiple right fingers (nail), not including thumb, initial encounter; S39.012A Strain of muscle, fascia and tendon of lower back, initial encounter; I10 Essential (primary) hypertension; R94.5 Abnormal results of liver function studies; F41.9 Anxiety disorder, unspecified; F17.210 Nicotine dependence, cigarettes, uncomplicated; Z85.42 Personal history of malignant neoplasm of other parts of uterus; X19.XXXA Contact with other heat and hot substances, initial encounter
CPT/HCPCS: 70450; 72100; 80053; 80306; 85025; 93005; 94760; 96361; 96374; 96375; 96376; J2060; J2270

== ENCOUNTER 2019-11-22 16:49 | Inpatient (IN) | payer MEDICARE ==
[2019-11-22 18:05] LABS: Bacteria/HPF None Seen HPF (None Seen); Bilirubin Negative (Negative); Blood, Urine Trace (Negative); Clarity Clear (Clear); Glucose, Urine (Dipstick) Normal (Negative); Leukocyte Negative Leu/uL (Negative); Nitrite Negative (Negative); Protein, Urine (Dipstick) Negative (Neg-Trace); Squamous Epithelial 0-3 HPF (0-3); Urobilinogen Normal mg/dL (Less than 2); WBC/HPF 0-3 HPF (0-3)
--- NOTE | 2019-11-22 18:47 | PDOC.FPRHP ---
- History of Present Illness Chief Complaint: seizure History of Present Illness: 54 y/o F with a pmhx of seizure d/o, HTN and previous CVA 10/2018, presents to the ED after having X3 seizures today. Frist starting at 07:30. She states when she woke up she felt numb and weak in the left side of face and extremities. Pt had a similar presentation in [facility] and was deemed ot be having pseudoseizures by neurology, who recommended pt not receive tPA today. Pt was transferred from [place], where Dr. 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 Pt c/o VELASCO, throbbing in character, 8-9/10 intensity, worse with loud noise, no photophobia. Alleviated by lying down. C/o back pain form a fall in August that has left her in moderate pain. Denies N/V/C, CP/SOB. Pt c/o abdominal pain. States she drinks 2-3 glasses of wine on weekend nights. ED course: pt given lorazepam and transferred to [place] from [place]. Neurology Dr. Joy recommending MRI - Allergies/Adverse Reactions Allergies Allergy/AdvReac Type Severity Reaction Status Date / Time prednisone Allergy Intermediate Rash Verified 05/13/17 12:56 rofecoxib [From Vioxx] Allergy Intermediate leg Verified 05/13/17 12:56 swelling - Home Medications Medication Instructions Recorded Confirmed Type amLODIPine Besylate [Amlodipine 10 mg PO DAILY 11/19/16 11/22/19 History Besylate] levETIRAcetam 1,500 mg PO BID 10/15/18 11/22/19 History - History PMHx: seizure d/o, HTN, uterine CA S/P hysterectomy, CVA in 10/2018 PSHx: Hysterectomy, appendectomy, cholecystectoym, brain surgery for benign lesion removal, FHx: brother: DM , heart problems mother: COPD, heart problems, [place], OA Father: DM, heart problems Social: smokes 1 ppd for 40 years. Drinks 2-3 glasses of wine on weekend nights. denies illicit drug use. - Review of Systems General: denies: fever/chills, weight/appetite/sleep changes Eyes: denies: eye pain, vision changes ENT: denies: nasal congestion Respiratory: denies: cough, shortness of breath Cardiovascular: denies: chest pain, edema Gastrointestinal: reports: abdominal pain. denies: nausea, vomiting, diarrhea, constipation Skin: denies: rashes, lesions Musculoskeletal: reports: pain (low back) Neurological: reports: numbness (L sided), seizure (X3 today) - Vital signs BP: 131/75 HR: 85 RR: 18 Tmax: 98 Pox: 94% on ra Wt: 76 kg - Physical Exam Constitutional: NAD, awake, alert and oriented HEENT: normocephalic and atraumatic, PERRLA, EOMI, conjunctiva clear, no scleral icterus, grossly normal vision, grossly normal hearing, MMM, oropharynx clear, other (poor dentition) Neck: supple, trachea midline, no LAD, no JVD Chest: no-tender to palpation, no lesions Heart: RRR, normal S1/S2, no murmurs/rubs/gallops, pulses present, no edema Lungs: CTAB, no respiratory distress, good air movement, no rales/rhonchi, no wheezing, no retractions Abdomen: soft, bowel sounds present -Abdomen: Tender RUQ Musculoskeletal: normal structure, normal tone -Neurological: Left sided 3/5 weakness and paresthesia of upper, lower ext. L sided facial decreased sensation. Weak L sided shoulder raise, otherwise CN II-XII intact. finger to nose and heel to nava intact on right, unable to perform due to weakness on Left. Skin: no rash/lesions, good turgor, capillary refill <2 seconds, no jaundice Heme/Lymphatic: no unusual bruising or bleeding, no purpura, no petechia Psychiatric: intact recent and remote memory FMR H&P: Results - Labs Lab results: Urine Ketones Negative mg/dL (Negative) 11/22/19 17:45 Urine Blood Trace (Negative) A 11/22/19 17:45 Urine Nitrite Negative (Negative) 11/22/19 17:45 Ur Leukocyte Esterase Negative Andreina/uL (Negative) 11/22/19 17:45 Urine RBC 7-10 HPF (0-3) A 11/22/19 17:45 Urine WBC 0-3 HPF (0-3) 11/22/19 17:45 Ur Squamous Epith Cells 0-3 HPF (0-3) 02/16/20 17:45 Urine Bacteria None Seen HPF (None Seen) 11/22/19 17:45 Laboratory Tests 11/22/19 11/22/19 11/22/19 13:16 13:23 13:23 WBC 11.3 H Creatinine 0.80 AST 117 H ALT 189 H Alkaline Phosphatase 149 H Troponin I Salicylates Less than 8.0 L Acetaminophen Less than 6.0 L Plasma Alcohol Less than 10 11/22/19 13:23 WBC Creatinine AST ALT Alkaline Phosphatase Troponin I 0.010 Salicylates Acetaminophen Plasma Alcohol FMR H&P: A/P - Problem List (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 Code(s): G83.84 - GARRICK'S PARALYSIS ( POSTEPILEPTIC) (2) Seizure disorder Current Visit: Yes Status: Chronic Code(s): G40.909 - EPILEPSY, UNSP, NOT INTRACTABLE, WITHOUT STATUS EPILEPTICUS (3) Left-sided weakness Current Visit: Yes Status: Acute Code(s): R53.1 - WEAKNESS (4) HTN (hypertension) Current Visit: Yes Status: Chronic Code(s): I10 - ESSENTIAL (PRIMARY) HYPERTENSION Qualifiers: (5) Tobacco abuse Current Visit: Yes Status: Chronic Code(s): Z72.0 - TOBACCO USE (6) Elevated transaminase level Current Visit: Yes Status: Acute Code(s): R74.0 - NONSPEC ELEV OF LEVELS OF TRANSAMNS & LACTIC ACID DEHYDRGNSE - Plan 54 y/o F with pmhx of seizure d/o admitted to stroke obs for seizures with L- sided weakness and parasthesias in postictal state, 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 Seizure D/o - X3 seizures today. - takes 1500 mg Kepra BID, has been compliant with medications - ordered UDS, negative - prolactin pending - keppra level pending 2. Left sided paresthesia and weakness; Garrick's Paresis - 4/5 strength L side upper and lower ext. 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 - Ordered MRI brain 3. Hx of CVA in Oct 2018. - some residual weakness, but not as weak as she acutely is today. 4. 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 No need for permissive HTN. 5. Hx of Tobacco abuse - smokes 1 ppd for about 40 years. - smoking cessation encouraged. 6. Elevated liver transaminase levels - AST 117, ALT 189, Alk phos 149. - Abd sono: Increased echogenicity of liver may be due to hepatic steatosis or hepatocellular disease. MRI recommended for further evaluation. - etoh cessation counseling necessary. Dispo: stable, admit to stroke obs diet: HH dvt ppx: scd's code status: Full code FMR H&P: Upper Level - Plan Date/Time: 11/22/19 4738 PCP: Shayne HPI: This is a 54 yo F coming in for L sided weakness after seizures. She had PMH including epilepsy, psycogenic siezures, HTN, benign brain tumor s/p surgery. She states she had first seizure around 7 am and then another between 9 and noon. After the second seizure she had weakness affecting the L upper and lower extremity. Denies tongue/cheek biting, postictal confusion, or incontinence. Denies missing and medications. Denies any recent illness, fevers, chills, or sweats. 40+ pack-year smoker. She gave different stories about alcohol use. Note from [place] indicates says she drinks more than she says. She said one glass of wine a day to this provider. REVIEW OF SYSTEMS: Gen: no fever, chills, or sweats Neuro: denies headache Eyes: no visual changes ENT: no hearing changes, no sore throat, no congestion Resp: denies cough, SOB Card: denies CP, palpitations GI: +abd pain after eating, burning, epigastric Skin: no rash, no erythema PHYSICAL EXAMINATION: General: NAD, alert and oriented x3 HEENT: PERRLA, EOMI, normal sclera, oropharynx without erythema or exudate Neck: Supple. Full ROM. Heart/Cardiovascular System: RRR, Cap refill < 3 seconds, no rub, no murmur Lungs/Respiratory System: CTA-B, no resp distress Abdomen/Gastro-Intestinal System: soft, normal bowel sounds, tender dion in RUQ, no guarding/rebound, not distended Extremities: Warm extremities. No cyanosis or edema Neuro: moves L arm but unable to lift off bed, cover inspector strength 2/4, lifts left leg off bed but drifts back to bed, sensation intact, no facial droop or slurred speech Psychiatry: Awake, Alert and cooperative with exam Skin: no rashes, ulcers Musculoskeletal: Full ROM A/P: # L sided weakness, seizures, likely Todds Paralyssis - Very similar episode Oct 2018 - Hx of psyogenic seizures - Given keppra in ED, unable to run level off labs from before dose - CTA head/neck no acute process - Communicated with Dr. Joy, Brain MRI, appreciate Recs - PT/OT # Transaminitis, possible alcohol abuse - Check RUQ US, FLP - Could be related to alcohol use - Consider hep panel after above - ASE protocol, thiamine, folate # HTN - Home meds Fluids: tko Code status: full PPx: lovenox Dispo: obs, consider rehab, brain MRI pending
[2019-11-22] MEDS ORDERED: Acetaminophen 500 MG TAB ONE (18:52)
[2019-11-22] MEDS ORDERED: levETIRAcetam 500 MG TAB PO SCH (19:00)
[2019-11-22] MEDS ORDERED: Acetaminophen 325 MG TAB PO PRN (19:25)
[2019-11-22 19:41] LABS: Amphetamine Not Detected (NotDetected); Barbiturates Screen Not Detected (NotDetected); Benzodiazepine Screen Not Detected (NotDetected); Cocaine Metabolite Screen Not Detected (NotDetected); Medtox Control Line Valid? VALID (VALID); Medtox Reader # READER 4; Methadone Not Detected (NotDetected); Methamphetamine Not Detected (NotDetected); Opiate Screen Not Detected (NotDetected); Oxycodone Screen Not Detected (NotDetected); Phencyclidine (PCP) Not Detected (NotDetected); THC/Cannabinoid Screen Not Detected (NotDetected); Tricyclic Screen Not Detected (NotDetected)
--- NOTE | 2019-11-22 22:02 | ULT ---
EXAM: US Gallbladder RUQ CLINICAL HISTORY: Elevated liver enzymes. Right upper quadrant pain.. COMPARISON: None. FINDINGS: Pancreas: The head and proximal pancreatic body have a normal echotexture. Liver:Increased echogenicity which may be due to hepatic steatosis or hepatocellular disease. Subsequ ent limited evaluation for hepatic masses and intrahepatic biliary dilatation. Gallbladder: Surgically absent Webb's sign:Not applicable Portal Vein: Patent. Appropriate directional flow Bile ducts: Common bile diameter 0.65 cm Right kidney: No hydronephrosis. Right kidney measures 11.1 cm in length. IMPRESSION: 1. Increased echogenicity of the liver which may be due to hepatic steatosis or hepatocellular diseas e. Limited evaluation for hepatic masses and intrahepatic biliary dilatation. If there is concern for hepatic masses, abdomen MRI or liver mass protocol CT can be performed, nonemergently Transcribed Date/Time: 11/22/2019 10:27 PM
[2019-11-22] MEDS: Nicotine 14 MG PATCH TD SCH (22:50)
[2019-11-22 23:08] VITALS: BMI 28.8
[2019-11-23 04:53] LABS: #Basophils 0.1 thou/uL (0.0-0.2); #Eosinphils 0.2 thou/uL (0.0-0.7); #Lymphocytes 2.4 thou/uL (1.20-3.40); #Monocytes 0.8 thou/uL (0.11-0.59); #Neutrophils 5.4 thou/uL (1.40-6.50); %Basophils 0.7 % (0.0-1.0); %Eosinophils 2.6 % (0.0-10.0); %Monocytes 9.3 % (0.0-10.0); %Neutrophils 60.4 % (42.0-75.0); Hemoglobin 14.8 g/dL (12.0-16.0); Mean Corpuscular HGB CONC 33.7 g/dL (32.0-36.0); Mean Corpuscular Hemoglobin 31.1 pg (27.0-31.0); Mean Corpuscular Volume 92.5 fL (78.0-98.0); Mean Platelet Volume 7.7 fL (7.4-10.4); Platelet Count 296 thou/uL (130-400); RBC Distribution Width 12.9 % (11.5-14.5); Red Blood Cell (RBC) Count 4.77 mill/uL (4.20-5.40)
[2019-11-23 05:05] LABS: Anion Gap 11 mmol/L (10-20); BUN (Urea Nitrogen) 13 mg/dL (9.8-20.1); Calc. Creatinine Clearance 101 mL/min (70-130); Calcium 8.9 mg/dL (7.8-10.44); Carbon Dioxide 27 mmol/L (22-29); Cardiac Risk 4.2 (Less than 4.5); Chloride 105 mmol/L (98-107); Cholesterol 190 mg/dl (< 200 Desired); Estimated GFR-MDRD 78; Glucose 100 mg/dL (70-105); HDL Cholesterol 45 mg/dL (>60 Neg Risk); LDL Cholesterol, Calculated 117 mg/dL; Potassium 3.8 mmol/L (3.5-5.1); Sodium 139 mmol/L (136-145); Triglycerides 142 mg/dL (Less than 150)
--- NOTE | 2019-11-23 06:25 | PDOC.FM ---
- Subjective Subjective: Pt is a 54 yo female with continued L sided weakness, sensory changes. She has pain while lifting her arm, leg. She drinks a couple glasses of wine a day. She denies LOC, seizure today. She was seen at [facility] with similar symptoms are year ago. - Objective Vital Signs & Weight: Vital Signs (12 hours) Temp Pulse Resp BP Pulse Ox 11/23/19 04:00 97.9 F 84 16 129/68 92 L 11/22/19 23:59 98.3 F 81 16 111/57 L 92 L 11/22/19 20:51 98.0 F 82 16 127/67 94 L Weight Weight 76.022 kg Result Diagrams: 11/23/19 04:15 11/23/19 04:15 Phys Exam - Physical Examination Constitutional: NAD HEENT: PERRLA, moist MMs Respiratory: no wheezing, clear to auscultation bilateral Cardiovascular: RRR, no significant murmur Gastrointestinal: soft, non-tender, positive bowel sounds Musculoskeletal: no edema, pulses present Decreased sensation on L side, 3/5 strength left side, preserved on Right Psychiatric: normal affect, A&O x 3 Dx/Plan (1) Elevated transaminase level Code(s): R74.0 - NONSPEC ELEV OF LEVELS OF TRANSAMNS & LACTIC ACID DEHYDRGNSE Status: Acute (2) Left-sided weakness Code(s): R53.1 - WEAKNESS Status: Acute (3) Garrick's paresis Code(s): G83.84 - GARRICK'S PARALYSIS (POSTEPILEPTIC) Status: Acute (4) HTN (hypertension) Code(s): I10 - ESSENTIAL (PRIMARY) HYPERTENSION Status: Chronic Qualifiers: (5) Seizure disorder Code(s): G40.909 - EPILEPSY, UNSP, NOT INTRACTABLE, WITHOUT STATUS EPILEPTICUS Status: Chronic (6) Tobacco abuse Code(s): Z72.0 - TOBACCO USE Status: Chronic - Plan Plan: 54 y/o F with pmhx of seizure d/o admitted to stroke obs for seizures with L- sided weakness and parasthesias in postictal state, 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 Seizure D/o - X3 seizures today. - takes 1500 mg Kepra BID, has been compliant with medications - ordered UDS, negative - prolactin WNL - keppra level pending 2. Left sided paresthesia and weakness; Garrick's Paresis - 3/5 strength L side upper and lower ext. 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 - Ordered MRI brain 3. Hx of CVA in Oct 2018. - some residual weakness, but not as weak as she acutely is today. 4. 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 No need for permissive HTN. 5. Hx of Tobacco abuse - smokes 1 ppd for about 40 years. - smoking cessation encouraged. 6. Elevated liver transaminase levels - AST 117, ALT 189, Alk phos 149. - Abd sono: Increased echogenicity of liver may be due to hepatic steatosis or hepatocellular disease. MRI recommended for further evaluation. - etoh cessation counseling necessary. Dispo: stable, admit to stroke obs diet: HH dvt ppx: scd's code status: Full code
[2019-11-23] MEDS: Enoxaparin Sodium 40 MG/0.4 ML SYRINGE SC SCH (08:46)
[2019-11-23] MEDS: levETIRAcetam 500 MG TAB PO SCH ×2 (10:30→21:40)
[2019-11-23] MEDS: Folic Acid 1 MG TAB PO SCH (10:30)
[2019-11-23] MEDS: Amlodipine 5 MG TAB PO SCH (10:30)
[2019-11-23] MEDS: Thiamine 100 MG TAB PO SCH (10:31)
[2019-11-23 10:45] LABS: Hemoglobin A1c 5.8 % (4.0-6.0)
--- NOTE | 2019-11-23 11:03 | MRI ---
MRI BRAIN WITHOUT CONTRAST: Date: 11/23/2019 INDICATION: Seizure. Comparison made to MRI brain dated 10/15/18. FINDINGS: Craniotomy change on the left again noted with focal area of encephalomalacia involving the left temp oral lobe, stable. Ventricles have normal size and position. A few scattered white matter hyperintens ities seen on FLAIR sequence appear stable and consistent with mild chronic ischemic change. FLAIR si gnal seen within the martin suggests mild ischemic brainstem change, stable from prior exam. No evidence of restricted diffusion. No mass or edema. The mucosal edema in the maxillary and ethmoid air cells again noted and described previously. Flow-voids seen in the intracranial internal carotid arteries and proximal cerebral arteries. Dural v enous sinuses appear patent. Scalp nodules are again seen and were described previously. IMPRESSION: No acute process. Stable findings as described above. POS: [facility]
[2019-11-23 11:18] LABS: Iron 106 ug/dL (50-170); Iron Binding Capacity, Total 355 mcg/dL (265-497)
[2019-11-23 11:49] LABS: HBSAg Index 0.17 S/CO (0-0.99); Hep B Core Total Ab Non-Reactive (NonReactive); Hep B Core Total Index 0.19 S/CO (0-0.79); Hep B Surf Ag Non-Reactive S/CO (NonReactive); Hep C IgG Ab Non-Reactive (NonReactive); Hep C Index 0.25 S/CO (0-0.79)
[2019-11-23 12:13] LABS: HBSAB Concentration 19.48 mIU/mL; Hep B Surf AB Reactive (NonReactive)
--- NOTE | 2019-11-23 12:44 | PRG ---
DATE OF SERVICE: 11/23/2019 ADDENDUM: This is an addendum to the note of Dr. Torey Elizondo. Ms. Javier is a 54-year-old lady who was admitted with a left-sided weakness, possibly consistent with Garrick's paresis. She has a history of seizure versus pseudo-seizure and also sees Dr. Joy. MRI of the brain was obtained this morning because of her persistent weakness. There was no acute process. She had craniotomy changes on the left with focal areas of encephalomalacia involving the left temporal lobe that are stable. The ventricles were normal size and position. She had a few scattered white matter hyperintensities seen on FLAIR sequence consistent with mild chronic ischemic change. She also has elevated liver function tests and states that she drinks 2 glasses of wine daily. We will continue to work this up by checking hepatitis studies, and screens for hemochromatosis. We will also check an A1c as she has a strong family history of type 2 diabetes. Her right upper quadrant ultrasound did show echogenicity consistent with possible hepatosteatosis versus hepatocellular disease. We will continue to work this up as well. We are also awaiting input from Neurology. Job ID: [id number]
[2019-11-23] MEDS ORDERED: Naproxen 500 MG TAB PO PRN (14:21)
[2019-11-23] MEDS: traMADol HCl 50 MG TAB PO SCH ×2 (18:50→23:51)
[2019-11-23] MEDS: Nicotine 14 MG PATCH TD SCH (21:40)
[2019-11-24] MEDS: traMADol HCl 50 MG TAB PO SCH ×4 (05:51→23:50)
--- NOTE | 2019-11-24 06:18 | PDOC.FM ---
- Subjective Subjective: Pt is unchanged today. She remains painful with movement of L extremities. She did endorse some radiating pain with abduction of L arm. She has decreased sensation to L with light touch, pain. Pt will be seen by Dr. Joy today. She is ok with placement for rehab. - Objective Vital Signs & Weight: Vital Signs (12 hours) Temp Pulse Resp BP Pulse Ox 11/24/19 04:00 97.6 F 75 16 123/69 92 L 11/24/19 00:00 97.8 F 78 16 122/65 95 11/23/19 20:00 97.8 F 88 16 146/80 H 97 Weight Weight 76.022 kg I&O: 11/22/19 11/23/19 11/24/19 06:59 06:59 06:59 Intake Total 460 Balance 460 Result Diagrams: 11/23/19 04:15 11/23/19 04:15 Phys Exam - Physical Examination Constitutional: NAD HEENT: PERRLA, moist MMs poor dentitian Neck: supple, full ROM Respiratory: no wheezing, no rhonchi, clear to auscultation bilateral Cardiovascular: RRR, no significant murmur Gastrointestinal: soft, non-tender, positive bowel sounds Weakness 3/5 to L extremities. Preserved in RE. Decreased sensation to L Pain to paraspinal cervical, lumbar Psychiatric: normal affect, A&O x 3 Skin: no rash, cap refill <2 seconds Dx/Plan (1) Elevated transaminase level Code(s): R74.0 - NONSPEC ELEV OF LEVELS OF TRANSAMNS & LACTIC ACID DEHYDRGNSE Status: Acute (2) Left-sided weakness Code(s): R53.1 - WEAKNESS Status: Acute (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 Pt was seen 1 year ago with similar deficits and was diagnosed as psychogenic. 1. Seizure D/o - X3 seizures today. - takes 1500 mg Kepra BID, has been compliant with medications - UDS, negative, prolactin WNL, keppra level WNL - Neuro consulted - appreciate recs; added phenytoin 2. Left sided paresthesia and weakness; Garrick's Paresis - 3/5 strength L side upper and lower ext. - PT/OT, rehab screen for placement recommendations due to weakness. 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 - Brain MRI negative for acute change. - Pending B12, RBC Folate. 3. Hx of CVA in Oct 2018. - some residual weakness, but not as weak as she acutely is today. 4. Hx of HTN - home medications of amlodipine and HCTZ - will continue home medications 5. Hx of Tobacco abuse - smokes 1 ppd for about 40 years. - smoking cessation encouraged. 6. Elevated liver transaminase levels - AST 117, ALT 189, Alk phos 149. - Abd sono: Increased echogenicity of liver may be due to hepatic steatosis or hepatocellular disease. MRI recommended for further evaluation. - etoh cessation counseling necessary. GGT elevated. - Hepatitis B immune, Hep C negative. - Elevated ferritin, low %saturation. Possibly due to acute phase reactant vs hemachromatosis. Will need repeat ferritin in outpt. Dispo: stable, admit to stroke obs and will follow up with Dr. Joy this afternoon. We are working on placement for therapy 2/2 weakness. diet: Pureed, HH dvt ppx: scd's code status: Full code
[2019-11-24] MEDS: Amlodipine 5 MG TAB PO SCH (08:35)
[2019-11-24] MEDS: Thiamine 100 MG TAB PO SCH (08:35)
[2019-11-24] MEDS: levETIRAcetam 500 MG TAB PO SCH ×2 (08:35→21:37)
[2019-11-24] MEDS: Hydrochlorothiazide 25 MG TAB PO SCH (08:35)
[2019-11-24] MEDS: Folic Acid 1 MG TAB PO SCH (08:35)
[2019-11-24] MEDS: Enoxaparin Sodium 40 MG/0.4 ML SYRINGE SC SCH (08:36)
--- NOTE | 2019-11-24 12:53 | PRG ---
DATE OF SERVICE: 11/24/2019 ADDENDUM: This is an addendum to the note of Dr. Torey Elizondo. Ms. Javier is sitting quietly in bed, in no acute distress. She still has a residual left-sided weakness. We are still awaiting the input from Dr. Joy and we are also waiting placement for the patient. She offers no new complaints this morning. Interestingly, her iron studies show a ferritin level of 1900. Her GGT was significantly elevated at 746. My suspicion is Ms. Javier drinks more than her stated amount of two drinks per day. The elevated ferritin may reflect some degree of acute phase reactant, but I am concerned about the possibility of hemochromatosis. However, her iron saturation is only 30%. This will need to be followed and continued to be worked up as an outpatient. Otherwise, her abnormalities on liver tests may be related to alcohol. Job ID: [id number]
[2019-11-24] MEDS: Nicotine 14 MG PATCH TD SCH (21:37)
--- NOTE | 2019-11-24 23:24 | CON ---
DATE OF CONSULTATION: 11/24/2019 CONSULTING PHYSICIAN: Hospitalist Service. Ms. Javier was readmitted due to reported recurrent seizures prior to this. She has also had some chronic back pain and is being evaluated by Pain Management. Her Keppra level was 21. She has been started on Dilantin given that she is on 3000 mg daily dose of Keppra. Her course thus far has been unremarkable. She has not had any further seizure activity. She is complaining that the back pain has not been able to be addressed since August due to insurance difficulties. She will need an outpatient MRI of the lumbar spine and follow up with Dr. Chapman in the office. Continue the current combination of Dilantin and Keppra, and see her in followup. Job ID: [id number]
[2019-11-25] MEDS: traMADol HCl 50 MG TAB PO SCH ×2 (05:59→11:19)
--- NOTE | 2019-11-25 06:32 | PDOC.FM ---
- Subjective Subjective: Pt is unchanged. She continues with L side weakness. She is able to ambulate to the bathroom without assistance. She does not have insurance and is currently applying. - Objective Vital Signs & Weight: Vital Signs (12 hours) Temp Pulse Resp BP BP Pulse Ox 11/25/19 03:56 97.6 F 81 14 126/75 92 L 11/24/19 23:29 98.2 F 78 16 111/58 L 93 L 11/24/19 19:46 97.9 F 87 17 138/76 94 L Weight Weight 76.022 kg I&O: 11/23/19 11/24/19 11/25/19 06:59 06:59 06:59 Intake Total 460 800 Balance 460 800 Result Diagrams: 11/23/19 04:15 11/23/19 04:15 Phys Exam - Physical Examination Constitutional: NAD HEENT: PERRLA, moist MMs Neck: no JVD, full ROM Respiratory: no wheezing, no rhonchi, clear to auscultation bilateral Cardiovascular: RRR, no significant murmur Gastrointestinal: soft, non-tender, no distention, positive bowel sounds Musculoskeletal: no edema, pulses present 3/5 strength L extremities, decreased sensation, admits to pain w/ movement Psychiatric: normal affect, A&O x 3 Skin: no rash, cap refill <2 seconds Dx/Plan (1) Elevated transaminase level Code(s): R74.0 - NONSPEC ELEV OF LEVELS OF TRANSAMNS & LACTIC ACID DEHYDRGNSE Status: Acute (2) Left-sided weakness Code(s): R53.1 - WEAKNESS Status: Acute (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 Pt was seen 1 year ago with similar deficits and was diagnosed as psychogenic. 1. Seizure D/o - X3 seizures today. - takes 1500 mg Kepra BID, has been compliant with medications - UDS, negative, prolactin WNL, keppra level WNL - Neuro consulted - appreciate recs; added phenytoin. Follow up with pain management, Dr. Chapman, needs on outpt MRI. - pending placement. Will discuss with case management. Likely PT/OT with HH 2. Left sided paresthesia and weakness; Garrick's Paresis - 3/5 strength L side upper and lower ext. - PT/OT, rehab screen for placement recommendations due to weakness. 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 - Brain MRI negative for acute change. 3. Hx of CVA in Oct 2018. - some residual weakness, but not as weak as she acutely is today. 4. Hx of HTN - home medications of amlodipine and HCTZ - will continue home medications 5. Hx of Tobacco abuse - smokes 1 ppd for about 40 years. - smoking cessation encouraged. 6. Elevated liver transaminase levels - AST 117, ALT 189, Alk phos 149. - Abd sono: Increased echogenicity of liver may be due to hepatic steatosis or hepatocellular disease. MRI recommended for further evaluation. - etoh cessation counseling necessary. GGT elevated. - Hepatitis B immune, Hep C negative. - Elevated ferritin, low %saturation. Possibly due to acute phase reactant vs hemachromatosis. Will need repeat ferritin in outpt. Dispo: home with home health/PT/OT Diet: Pureed, HH DVT ppx: scd's
[2019-11-25] MEDS: Amlodipine 5 MG TAB PO SCH (09:08)
[2019-11-25] MEDS: Hydrochlorothiazide 25 MG TAB PO SCH (09:09)
[2019-11-25] MEDS: Thiamine 100 MG TAB PO SCH (09:10)
[2019-11-25] MEDS: Folic Acid 1 MG TAB PO SCH (09:10)
[2019-11-25] MEDS: Enoxaparin Sodium 40 MG/0.4 ML SYRINGE SC SCH (09:10)
[2019-11-25] MEDS: levETIRAcetam 500 MG TAB PO SCH (09:10)
--- NOTE | 2019-11-25 11:29 | PRG ---
DATE OF SERVICE: 11/25/2019 ADDENDUM: Ms. Javier is having some MSK complaints and we are arranging for home health to administer physical therapy. Afterward, she will be discharged. Job ID: [id number]
[2019-11-25 11:34] VITALS: TEMP 97.8
[2019-11-25 12:26] VITALS: BP 134/78
[2019-11-27 16:14] LABS: Hematocrit 44.4 % (34.0-46.6); RBC Folate Test Component 991 ng/mL (>498)
== END 2019-11-25 13:35 | disposition home or self-care (01) | DRG 101 ==
LOC: ERS 16:49 → 2SE 19:28 → OBSVTOIN 11-25 09:03
PROVIDERS: ADMIT Family Medicine; ATTEND Family Medicine
DX: G40.909 Epilepsy, unspecified, not intractable, without status epilepticus (principal); G83.84 Todd's paralysis (postepileptic); I10 Essential (primary) hypertension; R53.1 Weakness; F17.200 Nicotine dependence, unspecified, uncomplicated; R74.0 Nonspecific elevation of levels of transaminase and lactic acid dehydrogenase [LDH]; R20.2 Paresthesia of skin; Z86.73 Personal history of transient ischemic attack (TIA), and cerebral infarction without residual deficits
CPT/HCPCS: 36415; 70551; 76705; 80048; 80061; 80177; 80306; 81003; 81015; 82607; 82728; 82747; 82977; 83036; 83540; 83550; 84146; 85014; 85025; 86704; 86706; 86803; 87340; J1650

== ENCOUNTER 2020-07-06 12:34 | Emergency (ER) | payer MEDICARE ==
--- NOTE | 2020-07-06 13:27 | RAD ---
EXAM: Right rib series with chest x-ray HISTORY: Rib pain COMPARISON: None FINDINGS: Single view of the chest shows a normal sized cardiomediastinal silhouette. Opacity in the left lung base may represent atelectasis. There is no evidence of consolidation, mass, or pleural effusion. Multiple views of the right ribs shows no evidence of displaced rib fracture. No underlying pleural t hickening or pneumothorax are seen. IMPRESSION: 1. No evidence of displaced rib fracture. 2. No left basilar atelectasis evidence of acute cardiopulmonary disease.
[2020-07-06 13:35] LABS: #Basophils 0.1 thou/uL (0.0-0.2); #Eosinphils 0.2 thou/uL (0.0-0.7); #Lymphocytes 2.9 thou/uL (1.20-3.40); #Neutrophils 8.6 thou/uL (1.40-6.50); %Basophils 0.6 % (0.0-1.0); %Eosinophils 1.3 % (0.0-10.0); %Lymphocytes 22.9 % (21.0-51.0); %Monocytes 7.8 % (0.0-10.0); %Neutrophils 67.5 % (42.0-75.0); Hemoglobin 14.4 g/dL (12.0-16.0); Mean Corpuscular HGB CONC 32.2 g/dL (32.0-36.0); Mean Corpuscular Hemoglobin 31.2 pg (27.0-31.0); Mean Corpuscular Volume 96.9 fL (78.0-98.0); Platelet Count 297 thou/uL (130-400); Red Blood Cell (RBC) Count 4.61 mill/uL (4.20-5.40); White Blood Cell (WBC) Count 12.7 thou/uL (4.8-10.8)
[2020-07-06 14:01] LABS: ALT (SGPT) 85 U/L (8-55); AST (SGOT) 89 U/L (5-34); Albumin 3.8 g/dL (3.5-5.0); Alkaline Phosphatase 219 U/L (40-110); Anion Gap 14 mmol/L (10-20); BUN (Urea Nitrogen) 9 mg/dL (9.8-20.1); Bilirubin, Total 0.4 mg/dL (0.2-1.2); Calc. Creatinine Clearance 0 mL/min (70-130); Calcium 8.5 mg/dL (7.8-10.44); Carbon Dioxide 25 mmol/L (22-29); Chloride 104 mmol/L (98-107); Dilantin Less than 1.8 ug/mL (10.0-20.0); Estimated GFR-MDRD 72; Globulin 3.9 g/dL (2.4-3.5); Glucose 94 mg/dL (70-105); Potassium 3.7 mmol/L (3.5-5.1); Protein, Total 7.7 g/dL (6.0-8.3); Sodium 139 mmol/L (136-145)
[2020-07-06 14:39] LABS: Bilirubin Negative (Negative); Blood, Urine Negative (Negative); Clarity Clear (Clear); Glucose, Urine (Dipstick) Normal (Negative); Ketone, Urine Negative (Negative); Leukocyte Negative Leu/uL (Negative); Nitrite Negative (Negative); Protein, Urine (Dipstick) Negative (Neg-Trace); Specific Gravity, Urine 1.012 (1.002-1.036); Urobilinogen Normal mg/dL (Less than 2); pH, Urine 7.5 (5.0-9.0)
== END 2020-07-06 14:27 | disposition home or self-care (01) ==
LOC: ERS 12:34
DX: S20.211A Contusion of right front wall of thorax, initial encounter (principal); R04.2 Hemoptysis; G40.909 Epilepsy, unspecified, not intractable, without status epilepticus; I10 Essential (primary) hypertension; F17.210 Nicotine dependence, cigarettes, uncomplicated; Z79.899 Other long term (current) drug therapy; W18.30XA Fall on same level, unspecified, initial encounter
CPT/HCPCS: 36415; 80053; 80177; 80185; 81003; 85025; 87086; 93005

== ENCOUNTER 2020-07-08 00:39 | Emergency (ER) | payer MEDICARE | END 2020-07-08 01:16 | disposition home or self-care (01) | LOC: ERS 00:39 | DX: R04.0 Epistaxis (principal); I10 Essential (primary) hypertension; G43.909 Migraine, unspecified, not intractable, without status migrainosus; F17.210 Nicotine dependence, cigarettes, uncomplicated; Z79.899 Other long term (current) drug therapy ==

== ENCOUNTER 2021-05-09 14:22 | Outpatient (CLI) | payer MEDICARE | END 2021-05-09 14:23 | disposition home or self-care (01) | LOC: BICMAMMO 14:22 | PROVIDERS: ATTEND Nurse Practitioner Adult Health | DX: Z12.31 Encounter for screening mammogram for malignant neoplasm of breast (principal) | CPT/HCPCS: 77063; 77067 ==

== ENCOUNTER 2021-06-05 13:43 | Emergency (ER) | payer MEDICARE ==
[2021-06-05 19:58] LABS: SARS-CoV-2 PCR by NAA DETECTED (NotDetected)
== END 2021-06-05 14:25 | disposition home or self-care (01) ==
LOC: ERS 13:43
DX: U07.1 COVID-19 (principal); I10 Essential (primary) hypertension; F17.210 Nicotine dependence, cigarettes, uncomplicated
CPT/HCPCS: U0003; U0005; 99283

== ENCOUNTER 2022-09-03 15:23 | Emergency (ER) | payer MEDICARE, OTHER ==
[~2022-09-03 15:23] MED LIST: Iopamidol-370 76% 500 ML 1 ML ONE
[2022-09-03 16:00] LABS: #Basophils 0.1 thou/uL (0.0-0.2); #Eosinphils 0.3 thou/uL (0.0-0.7); #Lymphocytes 2.6 thou/uL (1.20-3.40); #Monocytes 1.1 thou/uL (0.11-0.59); #Neutrophils 9.5 thou/uL (1.40-6.50); %Basophils 0.6 % (0.0-1.0); %Eosinophils 2.1 % (0.0-10.0); %Lymphocytes 19.1 % (21.0-51.0); %Monocytes 8.2 % (0.0-10.0); %Neutrophils 70.1 % (42.0-75.0); Hemoglobin 14.5 g/dL (12.0-16.0); Mean Corpuscular HGB CONC 32.7 g/dL (32.0-36.0); Mean Corpuscular Hemoglobin 33.6 pg (27.0-31.0); Mean Platelet Volume 7.8 fL (7.4-10.4); Platelet Count 195 10x3/uL (130-400); RBC Distribution Width 12.4 % (11.5-14.5); Red Blood Cell (RBC) Count 4.33 mill/uL (4.20-5.40); White Blood Cell (WBC) Count 13.5 10x3/uL (4.8-10.8)
[2022-09-03 16:26] LABS: ALT (SGPT) 50 U/L (8-55); AST (SGOT) 88 U/L (5-34); Albumin 3.8 g/dL (3.5-5.0); Alkaline Phosphatase 230 U/L (40-110); Anion Gap 14 mmol/L (10-20); BUN (Urea Nitrogen) 9 mg/dL (9.8-20.1); Bilirubin, Total 1.3 mg/dL (0.2-1.2); Calc. Creatinine Clearance 0 mL/min (70-130); Calcium 8.8 mg/dL (7.8-10.44); Carbon Dioxide 24 mmol/L (22-29); Chloride 105 mmol/L (98-107); Estimated GFR 96; Globulin 4.4 g/dL (2.4-3.5); Glucose 94 mg/dL (70-105); Lipase 45 U/L (8-78); Potassium 3.8 mmol/L (3.5-5.1); Protein, Total 8.2 g/dL (6.0-8.3); Sodium 139 mmol/L (136-145)
[2022-09-03 17:56] LABS: Bacteria/HPF 4+ HPF (None Seen); Bilirubin Negative (Negative); Blood, Urine Negative (Negative); Clarity Turbid (Clear); Glucose, Urine (Dipstick) Normal (Negative); Ketone, Urine Negative (Negative); Leukocyte 250 Leu/uL (Negative); Nitrite 2+ (Negative); Protein, Urine (Dipstick) 10 mg/dL (Neg-Trace); RBC/HPF 0-3 HPF (0-3); Specific Gravity, Urine 1.021 (1.002-1.036); Squamous Epithelial 0-3 HPF (0-3); WBC/HPF 21-50 HPF (0-3)
[2022-09-03] MEDS ORDERED: Ketorolac Tromethamine 30 MG/ML VIAL ONE (22:46)
[2022-09-03] MEDS ORDERED: cefTRIAXone\\ROCEPHIN 1 GM VIAL ONE (22:46)
== END 2022-09-03 23:25 | disposition home or self-care (01) ==
LOC: ERS 15:23
DX: N10 Acute pyelonephritis (principal); I10 Essential (primary) hypertension; F17.210 Nicotine dependence, cigarettes, uncomplicated; Z79.899 Other long term (current) drug therapy
CPT/HCPCS: 36415; 74177; 80053; 81003; 81015; 83690; 85025; 87077; 87086; 87186; 96374; 96375; J0696; J1885; Q9967